=== PATIENT | male | born 1980 | race Caucasian/White ===

== ENCOUNTER 2018-03-27 10:35 | Emergency (ER) | payer OTHER ==
[~2018-03-27] VITALS: Ht 190.5 cm; Wt 88.0 kg
[2018-03-27 10:39] VITALS: BP 131/80; Ht 190.5 cm; Wt 88.0 kg
== END 2018-03-27 11:55 | disposition home or self-care (01) ==
LOC: ED 10:35
DX: H01.004 Unspecified blepharitis left upper eyelid (principal)